=== PATIENT | male | born 1950 | race Caucasian/White ===

== ENCOUNTER 2018-07-14 21:10 | Emergency (ER) | payer MEDICARE, BC ==
[~2018-07-14] VITALS: Ht 175.3 cm; Wt 69.6 kg
[2018-07-14] MEDS ORDERED: ONDANSETRON 2MG/ML, 2ML IVPush ONE (22:00)
[2018-07-14] MEDS ORDERED: HYDROcodone/APAP 5/325 TABLET PO ONE (22:00)
[2018-07-14 22:05] LABS: BASOPHILS # (AUTO) 0.02 x10^3/uL (0-0.1); BASOPHILS % (AUTO) 0 % (0-1); EOSINOPHILS # (AUTO) 0.05 x10^3/uL (0-0.4); EOSINOPHILS % (AUTO) 1 % (1-7); LYMPHOCYTES # (AUTO) 1.63 x10^3/uL (1-3.4); LYMPHOCYTES % (AUTO) 23 % (22-44); MD NO; MEAN CORPUSCULAR HEMOGLOBIN 30.2 pg (27.5-34.5); MEAN CORPUSCULAR HGB CONC 34.1 g/dL (33.2-36.2); MEAN CORPUSCULAR VOLUME 88.6 fL (81-97); MEAN PLATELET VOLUME 9.8 fL (7.4-10.4); MONOCYTES # (AUTO) 0.65 x10^3/uL (0.2-0.8); MONOCYTES % (AUTO) 9 % (2-9); NEUTROPHILS # (AUTO) 4.85 x10^3/uL (1.8-6.8); NEUTROPHILS % (AUTO) 67 % (42-75); PLATELET COUNT 188 x10^3/uL (130-400); RED BLOOD COUNT 5.52 x10^6/uL (4.38-5.82); RED CELL DISTRIBUTION WIDTH 14.5 % (9.4-14.8)
[2018-07-14 22:16] LABS: ALANINE AMINOTRANSFERASE 32 U/L (12-78); ALBUMIN 3.6 g/dL (3.4-5.0); ANION GAP 7 mmol/L (5-15); CALCIUM 9.2 mg/dL (8.5-10.1); CHLORIDE 104 mmol/L (98-107); CREATININE 0.84 mg/dL (0.7-1.3)
[2018-07-14 22:18] LABS: ALKALINE PHOSPHATASE 99 U/L (45-117); BILIRUBIN,TOTAL 0.4 mg/dL (0.2-1.0); TOTAL PROTEIN 7.3 g/dL (6.4-8.2)
[2018-07-14] MEDS ORDERED: ONDANSETRON 2MG/ML, 2ML ONE (22:29)
[2018-07-14] MEDS ORDERED: HYDROcodone/APAP 5/325 TABLET ONE (22:30)
[2018-07-14] MEDS ORDERED: OMNIPAQUE 350 MG/ML, 100ML BOTTLE ONE (22:40)
[2018-07-14 23:57] VITALS: BP 154/82
== END 2018-07-15 00:43 | disposition home or self-care (01) ==
LOC: ED 21:49
DX: K40.90 Unilateral inguinal hernia, without obstruction or gangrene, not specified as recurrent (principal); N40.0 Benign prostatic hyperplasia without lower urinary tract symptoms; K52.9 Noninfective gastroenteritis and colitis, unspecified; C22.4 Other sarcomas of liver; F17.200 Nicotine dependence, unspecified, uncomplicated
CPT/HCPCS: 36415; 74177; 80053; 83605; 83690; 85025; 96374; 99284; J2405; Q9967

== ENCOUNTER 2018-08-22 11:46 | Day surgery (SDC) | payer MEDICARE, BC ==
[2018-08-15 12:53] VITALS: BP 128/81
[~2018-08-22] VITALS: Ht 175.3 cm; Wt 66.9 kg
[~2018-08-22 11:46] MED LIST: BUPIVACAINE/PF-EPI 0.5% 1:200K ONE; TAMS-11 PO
[2018-08-22] MEDS ORDERED: LACTATED RINGERS 1,000 ML IV SCH ×2 (12:15→19:31)
[2018-08-22] MEDS ORDERED: FENTANYL PF 250 MCG/5ML ONE (14:45)
[2018-08-22] MEDS ORDERED: NEOSTIGMINE 1 MG/ML, 10ML ONE (16:33)
[2018-08-22] MEDS ORDERED: GLYCOPYRROLATE 0.2MG/1ML, 5ML ONE (16:33)
[2018-08-22] MEDS ORDERED: PROPOFOL 10 MG/ML, 20ML ONE (16:33)
[2018-08-22] MEDS ORDERED: ROCURONIUM 10 MG/ML,10ML ONE (16:33)
[2018-08-22] MEDS ORDERED: CEFAZOLIN 1,000 MG ONE (16:33)
[2018-08-22] MEDS: FENTANYL PF 100 MCG/2ML IV PRN ×4 (17:51→18:43)
[2018-08-22] MEDS ORDERED: FENTANYL PF 100 MCG/2ML ONE ×2 (17:52→18:41)
[2018-08-22] MEDS ORDERED: OXYcodone 5 MG/5 ML ORAL.SOL UDC ONE (17:53)
[2018-08-22] MEDS ORDERED: ONDANSETRON 2MG/ML, 2ML IV PRN (18:00)
[2018-08-22] MEDS ORDERED: MEPERIDINE/PF 25MG/0.5ML IVPush PRN (18:00)
[2018-08-22] MEDS ORDERED: OXYcodone 5 MG/5 ML ORAL.SOL UDC PO PRN (18:00)
[2018-08-22] MEDS ORDERED: PROMETHAZINE 25 MG/ML, 1ML IV PRN (18:00)
[2018-08-22] MEDS ORDERED: HYDROmorphone 1 MG/ML, 1ML ONE (18:03)
[2018-08-22] MEDS: HYDROmorphone 2 MG/ML, 1ML IVPush PRN ×2 (18:10→18:38)
[2018-08-22] MEDS ORDERED: KETOROLAC 30 MG/1 ML ONE (18:15)
[2018-08-22] MEDS ORDERED: KETOROLAC 30 MG/1 ML IVPush ONE (18:30)
[2018-08-22] MEDS ORDERED: DIPHENHYDRAMINE 50 MG/ML, 1ML IVPush PRN (20:00)
[2018-08-22] MEDS ORDERED: ONDANSETRON 2MG/ML, 2ML IVPush PRN (20:00)
[2018-08-22] MEDS ORDERED: HYDROmorphone 2 MG/ML, 1ML IVPush PRN (20:00)
[2018-08-22] MEDS ORDERED: OXYcodone/APAP 5/325MG TABLET PO PRN (20:00)
[2018-08-22] MEDS ORDERED: KETOROLAC 30 MG/1 ML IVPush PRN (20:00)
[2018-08-22] MEDS ORDERED: IBUPROFEN 600 MG TABLET PO SCH (21:00)
== END 2018-08-22 21:36 | disposition home or self-care (01) ==
LOC: OUT 11:46 → MERGE 13:30 → 4NOR 19:10 → OUT 21:36
PROVIDERS: ATTEND Surgery
DX: K40.20 Bilateral inguinal hernia, without obstruction or gangrene, not specified as recurrent (principal); F17.210 Nicotine dependence, cigarettes, uncomplicated; Z72.89 Other problems related to lifestyle; Z98.890 Other specified postprocedural states; Z85.038 Personal history of other malignant neoplasm of large intestine
CPT/HCPCS: 49650; C1781; J0690; J1170; J1885; J2405; J2704; J2710; J3010; J3490; J7120; G0378

== ENCOUNTER → 2020-06-29 | Outpatient (CLI) | payer MEDICARE, BC ==
[~2020-06-29] MED LIST changes: -BUPIVACAINE/PF-EPI 0.5% 1:200K ONE
== END | disposition home or self-care (01) ==
LOC: RAD 14:33
PROVIDERS: ATTEND Nurse Practitioner Family
DX: Z12.2 Encounter for screening for malignant neoplasm of respiratory organs (principal); J84.10 Pulmonary fibrosis, unspecified; R91.1 Solitary pulmonary nodule; I25.10 Atherosclerotic heart disease of native coronary artery without angina pectoris; R05 Cough; F17.210 Nicotine dependence, cigarettes, uncomplicated
CPT/HCPCS: 76706; G0297